=== PATIENT | female | born 1995 | race Two or more races ===

== ENCOUNTER 2017-11-05 11:37 | Emergency (ER) | payer MEDICAID ==
[~2017-11-05] VITALS: Ht 170.2 cm; Wt 86.2 kg
[2017-11-05 12:35] LABS: Urine Bacteria NONE SEEN /hpf (None Seen); Urine Blood Negative /uL (Negative); Urine Specific Gravity 1.025 (1.001-1.035); Urine WBC 1 /hpf (0 - 5)
[2017-11-05 13:38] LABS: Basophils # (auto) 0 uL; Eosinophils # (auto) 0.1 uL; Hematocrit 36.3 % (36.0-46.0); Lymphocytes # (auto) 1.5 uL; Mean Corpuscular Hemoglobin 24.2 pg (28.0-32.0); Red Cell Distribution Width 17.1 % (11.8-14.3)
[2017-11-05 13:40] LABS: Basophils % (auto) 0.5 % (0.0-2.0); Eosinophils % (auto) 1.5 % (0.0-7.0); Hemoglobin 11.7 g/dL (12.2-16.2); Lymphocytes % (auto) 20.9 % (10.0-50.0); Mean Corpuscular Hgb Conc. 32.2 g/dL (32.0-36.0); Mean Corpuscular Volume 75.1 fL (80.0-100.0); Monocytes # (auto) 0.7 uL; Monocytes % (auto) 9.3 % (0.0-12.0); Neutrophils # (auto) 4.9 uL; Neutrophils % (auto) 67.8 % (37.0-80.0); Platelet Count (auto) 311 10^3/uL (140-450); Red Blood Cells 4.84 10^6/uL (4.0-5.20); White Blood Cell 7.2 10^3/uL (4.4-10.8)
[2017-11-05 16:22] VITALS: BP 120/85
== END 2017-11-05 16:32 | disposition home or self-care (01) ==
LOC: ER 11:37
DX: O26.891 Other specified pregnancy related conditions, first trimester (principal); R10.9 Unspecified abdominal pain; O99.331 Smoking (tobacco) complicating pregnancy, first trimester; M54.9 Dorsalgia, unspecified; Z88.0 Allergy status to penicillin; Z3A.01 Less than 8 weeks gestation of pregnancy
CPT/HCPCS: 36415; 76801; 81001; 81025; 84702; 85025

== ENCOUNTER 2018-04-30 15:35 | Emergency (ER) | payer MEDICAID ==
[~2018-04-30] VITALS: Ht 170.2 cm; Wt 111.1 kg
[2018-04-30 16:27] VITALS: BP 106/51
== END 2018-04-30 17:37 | disposition home or self-care (01) ==
LOC: ER 15:39
DX: L08.9 Local infection of the skin and subcutaneous tissue, unspecified (principal); F17.210 Nicotine dependence, cigarettes, uncomplicated; Z88.0 Allergy status to penicillin

== ENCOUNTER 2019-11-18 10:35 | Emergency (ER) | payer MEDICAID ==
[~2019-11-18] VITALS: Ht 170.2 cm; Wt 90.7 kg
[2019-11-18] MEDS ORDERED: KETOROLAC TROMETH 60MG/2ML VIAL IM ONE (11:15)
[2019-11-18 11:22] VITALS: BP 115/81
== END 2019-11-18 12:07 | disposition home or self-care (01) ==
LOC: ER 10:35
DX: S29.012A Strain of muscle and tendon of back wall of thorax, initial encounter (principal); Z88.0 Allergy status to penicillin; Z88.2 Allergy status to sulfonamides; X58.XXXA Exposure to other specified factors, initial encounter; Y93.89 Activity, other specified; Y92.89 Other specified places as the place of occurrence of the external cause; Y99.8 Other external cause status
CPT/HCPCS: 72070; 96372; 99283; J1885

== ENCOUNTER 2020-04-02 20:42 | Observation (INO) | payer MEDICAID ==
[~2020-04-02] VITALS: Ht 162.6 cm; Wt 90.7 kg
[2020-04-02 21:03] VITALS: BP 122/83
[2020-04-02 22:31] LABS: Amphetamine Screen, Urine POSITIVE (NEGATIVE); Barbiturate Scree,Urine NEGATIVE (NEGATIVE); Benzodiazephine Screen, Urine NEGATIVE (NEGATIVE); Cannabinoid Screen, Urine NEGATIVE (NEGATIVE); Cocaine Screen, Urine NEGATIVE (NEGATIVE); Opiate Scree,Urine NEGATIVE (NEGATIVE); Phencyclidine Screen, Urine NEGATIVE (NEGATIVE)
== END 2020-04-02 23:21 | disposition home or self-care (01) | DRG 566 ==
LOC: ER 20:42 → LDRP 21:17
PROVIDERS: ADMIT Specialist; ATTEND Specialist
DX: O26.852 Spotting complicating pregnancy, second trimester (principal); O26.892 Other specified pregnancy related conditions, second trimester; R10.2 Pelvic and perineal pain; Z3A.26 26 weeks gestation of pregnancy
CPT/HCPCS: 59025; 76805; 80307; 81002; 99284; G0378

== ENCOUNTER 2020-06-21 11:48 | Emergency (ER) | payer MEDICAID ==
[~2020-06-21] VITALS: Ht 170.2 cm; Wt 103.0 kg
[2020-06-21] MEDS ORDERED: cefTRIAXone SODIUM 250 MG VL IM ONE (16:00)
[2020-06-21 16:34] VITALS: BP 129/74
== END 2020-06-21 17:14 | disposition home or self-care (01) ==
LOC: ER 11:48
DX: O98.212 Gonorrhea complicating pregnancy, second trimester (principal); Z3A.26 26 weeks gestation of pregnancy; Z88.0 Allergy status to penicillin; Z88.2 Allergy status to sulfonamides
CPT/HCPCS: 96372; 99283; J0696

== ENCOUNTER → 2020-09-21 | Outpatient (CLI) | payer MEDICAID ==
[~2020-09-21] MED LIST: PREN-96 PO
== END | disposition home or self-care (01) ==
LOC: LAB 16:33
PROVIDERS: ATTEND Obstetrics & Gynecology
DX: O98.313 Other infections with a predominantly sexual mode of transmission complicating pregnancy, third trimester (principal); Z3A.38 38 weeks gestation of pregnancy

== ENCOUNTER 2020-09-23 10:19 | Inpatient (IN) | payer MEDICAID ==
[~2020-09-23] VITALS: Ht 170.2 cm; Wt 119.3 kg
[2020-09-23] MEDS ORDERED: WITCH HAZEL-GLYCERIN PAD TOP PRN (11:45)
[2020-09-23] MEDS ORDERED: LIDOCAINE 2%HCL (LOCAL ANESTH.) INJ 20ML MDV IJ ONE (11:45)
[2020-09-23] MEDS ORDERED: PHISODERM TOP SOLN 240ML BTL TOP PRN (11:45)
[2020-09-23] MEDS ORDERED: DERMOPLAST 60ML BOTTLE TOP PRN (11:45)
[2020-09-23 12:24] LABS: Basophils # (auto) 0 10 ^3/uL (0-0.2); Basophils % (auto) 0.7 % (0.0-2.0); Eosinophils # (auto) 0.1 10 ^3/uL (0-0.8); Lymphocytes # (auto) 1.2 10 ^3/uL (0.4-5.4); Mean Corpuscular Volume 78.9 fL (80.0-100.0); Monocytes # (auto) 0.7 10 ^3/uL (0-1.3); Neutrophils # (auto) 3.9 10 ^3/uL (1.6-8.6); White Blood Cell 5.9 10^3/uL (4.4-10.8)
[2020-09-23 12:26] LABS: Eosinophils % (auto) 1.7 % (0.0-7.0); Hemoglobin 11.7 g/dL (12.2-16.2); Lymphocytes % (auto) 20.9 % (10.0-50.0); Mean Corpuscular Hemoglobin 26.4 pg (28.0-32.0); Mean Corpuscular Hgb Conc. 33.4 g/dL (32.0-36.0); Monocytes % (auto) 11.2 % (0.0-12.0); Neutrophils % (auto) 65.5 % (37.0-80.0); Nucleated Red Blood Cells % 0.1 %; Red Blood Cells 4.43 10^6/uL (4.0-5.20); Red Cell Distribution Width 15.6 % (11.8-14.3)
[2020-09-23] MEDS ORDERED: miSOPROStol 100 mcg TAB SL ONE (12:45)
[2020-09-23] MEDS ORDERED: PROMETHAZINE HCL 25 MG/ML 1ML IM PRN (12:45)
[2020-09-23] MEDS ORDERED: BUTORPHANOL TARTRATE 2 MG/1 ML VIAL IV PRN ×2 (12:45)
[2020-09-23] MEDS ORDERED: CARBOPROST TROMETHAMINE 250 MCG/1ML VIAL IM ONE (12:45)
[2020-09-23] MEDS ORDERED: METHYLERGONOVINE MALEATE 0.2 MG/ML AMP IM PRN (12:45)
[2020-09-23] MEDS ORDERED: miSOPROStol 100 mcg TAB PR ONE (12:45)
[2020-09-23] MEDS ORDERED: PROMETHAZINE HCL 25 MG/ML 1ML IV PRN (12:45)
[2020-09-23] MEDS ORDERED: CARBOPROST TROMETHAMINE 250 MCG/1ML VIAL IM PRN (12:45)
[2020-09-23 12:51] LABS: Albumin 2.5 g/dL (3.4-5.0); Calcium 8.5 mg/dL (8.5-10.1); Potassium 4.2 mmol/L (3.5-5.1)
[2020-09-23 12:56] LABS: BUN/Creatinine Ratio 20.6; Bilirubin, Total 0.1 mg/dL (0.2-1.0); INR 0.92 (0.9-1.15); Partial Thromboplastin Time 27.5 sec (23.0-31.2); Total Protein 6.9 g/dL (6.4-8.2)
[2020-09-23] MEDS: CLINDAMYCIN 900MG IV 50 ML IV SCH ×2 (13:49→21:58)
[2020-09-23 13:50] LABS: Urine Bacteria NONE SEEN /hpf (None Seen); Urine Blood Negative /uL (Negative); Urine Mucus FEW (None Seen); Urine Specific Gravity 1.013 (1.001-1.035); Urine WBC 1 /hpf (0 - 5)
[2020-09-23] MEDS: LACTATED RINGER'S 1,000 ML IV SCH ×2 (13:50→19:13)
[2020-09-23 14:08] LABS: Amphetamine Screen, Urine NEGATIVE (NEGATIVE); Barbiturate Scree,Urine NEGATIVE (NEGATIVE); Benzodiazephine Screen, Urine NEGATIVE (NEGATIVE); Cannabinoid Screen, Urine NEGATIVE (NEGATIVE); Cocaine Screen, Urine NEGATIVE (NEGATIVE); Opiate Scree,Urine NEGATIVE (NEGATIVE); Phencyclidine Screen, Urine NEGATIVE (NEGATIVE)
[2020-09-23] MEDS ORDERED: miSOPROStol 50 MCG per PRE-CUT 1/2 TAB PO PRN (17:00)
[2020-09-24] MEDS ORDERED: OXYTOCIN 20 UNT in SODIUM CHLORIDE 0.9% 1,000 ML IV ONE (02:45)
[2020-09-24] MEDS ORDERED: TERBUTALINE SULFATE 1 MG/ML 1ML VIAL SC ONE (02:45)
[2020-09-24] MEDS ORDERED: LACT. RINGERS/OXYTOCIN 20UNITS 1,000 ML IV SCH (02:45)
[2020-09-24] MEDS ORDERED: LACT. RINGERS/OXYTOCIN 20UNITS 1,000 ML IV ONE (02:45)
[2020-09-24] MEDS: LACTATED RINGER'S 1,000 ML IV SCH ×3 (04:31→11:45)
[2020-09-24 05:12] LABS: RPR Non Reactive (Non Reactive); Rubella Antibodies, IgG 1.51 index (Immune >0.99)
[2020-09-24] MEDS: CLINDAMYCIN 900MG IV 50 ML IV SCH (05:45)
[2020-09-24] MEDS ORDERED: LIDOCAINE 2%HCL (LOCAL ANESTH.) INJ 20ML MDV IJ ONE ×2 (09:45→21:45)
[2020-09-24] MEDS ORDERED: ePHEDrine SULFATE 50 MG/ML AMP IV ONE ×3 (09:45→21:45)
[2020-09-24] MEDS ORDERED: NALOXONE HCL 0.4 MG/ML VIAL IV ONE ×3 (09:45→21:45)
[2020-09-24] MEDS ORDERED: ROPIVACAINE HCL 100 ML EPI SCH ×2 (09:45→21:45)
[2020-09-24] MEDS ORDERED: LACTATED RINGER'S 1,000 ML IV ONE (09:45)
[2020-09-24] MEDS ORDERED: fentaNYL CITRATE 100 MCG/2 ML VL IV ONE ×2 (09:45→21:45)
[2020-09-24] MEDS ORDERED: ROPIVACAINE HCL 400mg/200ml BAG (2mg/ml) ONE (09:52)
[2020-09-24] MEDS ORDERED: ROPIVACAINE HCL 200 ML EPI SCH (10:00)
[2020-09-24] MEDS ORDERED: LIDOCAINE HCL 2 %PF INJ 10ML AMP IJ ONE ×2 (10:00→10:06)
[2020-09-24] MEDS ORDERED: METHYLERGONOVINE MALEATE 0.2 MG/ML AMP IM ONE (10:50)
[2020-09-24] MEDS: IBUPROFEN 600 MG TAB PO PRN ×2 (12:24→19:32)
[2020-09-24 13:00] VITALS: BP 126/58
[2020-09-24] MEDS ORDERED: DOCUSATE CALCIUM 240 MG CAP PO ONE (13:45)
[2020-09-24 15:00] VITALS: BP 127/69
[2020-09-24] MEDS: ACETAMINOPHEN 325 MG TAB PO PRN (15:30)
[2020-09-24 19:11] VITALS: BP 123/66
[2020-09-24 23:00] VITALS: BP 119/61
[2020-09-25 03:00] VITALS: BP 111/61
[2020-09-25] MEDS: IBUPROFEN 600 MG TAB PO PRN ×3 (03:11→21:10)
[2020-09-25] MEDS ORDERED: PREN-96 PO (04:54)
[2020-09-25 07:00] VITALS: BP 104/57
[2020-09-25] MEDS: DOCUSATE CALCIUM 240 MG CAP PO SCH (10:28)
[2020-09-25] MEDS: ACETAMINOPHEN 325 MG TAB PO PRN (10:33)
[2020-09-25 10:35] VITALS: BP 103/58
[2020-09-25] MEDS ORDERED: INFLUENZA QUAD 2020-2021 0.5 ML SYRG IM ONE (11:30)
[2020-09-25 15:00] VITALS: BP 110/60
[2020-09-25 19:00] VITALS: BP 113/73
[2020-09-25 23:00] VITALS: BP 110/54
[2020-09-26 03:00] VITALS: BP 121/67
[2020-09-26] MEDS: IBUPROFEN 600 MG TAB PO PRN (05:50)
[2020-09-26] MEDS: DOCUSATE CALCIUM 240 MG CAP PO SCH (05:55)
[2020-09-26 07:05] VITALS: BP 116/74
== END 2020-09-26 09:35 | disposition home or self-care (01) | DRG 560 ==
LOC: LDRP 10:19 → OBSVTOIN 11:29 → LDRP 11:32
PROVIDERS: ADMIT Obstetrics & Gynecology; ATTEND Obstetrics & Gynecology
PROC: 10E0XZZ Delivery of Products of Conception, External Approach (ICD-10-PCS; principal; 2020-09-24)
PROC: 3E0P7VZ Introduction of Hormone into Female Reproductive, Via Natural or Artificial Opening (ICD-10-PCS; 2020-09-24)
PROC: 0KQM0ZZ Repair Perineum Muscle, Open Approach (ICD-10-PCS; 2020-09-24)
PROC: 3E0R3BZ Introduction of Anesthetic Agent into Spinal Canal, Percutaneous Approach (ICD-10-PCS; 2020-09-24)
PROC: 00HU33Z Insertion of Infusion Device into Spinal Canal, Percutaneous Approach (ICD-10-PCS; 2020-09-24)
DX: O42.92 Full-term premature rupture of membranes, unspecified as to length of time between rupture and onset of labor (principal); O99.824 Streptococcus B carrier state complicating childbirth; Z37.0 Single live birth; Z3A.39 39 weeks gestation of pregnancy; Z88.0 Allergy status to penicillin; Z88.2 Allergy status to sulfonamides; O70.1 Second degree perineal laceration during delivery; Z20.822 Contact with and (suspected) exposure to COVID-19; Z23 Encounter for immunization
CPT/HCPCS: 36415; 59025; 59409; 76815; 80053; 80307; 81001; 81002; 84112; 85025; 85384; 85610; 85730; 86592; 86762; 86850; 86900; 86901; 87426; 96360; 96361; 96365; G0378; J2590; J3490